=== PATIENT | female | born 1985 | race Caucasian/White ===

== ENCOUNTER 2019-09-04 20:16 | Emergency (ER) | payer MEDICAID, SELFPAY ==
[~2019-09-04] VITALS: Ht 160 cm; Wt 72.6 kg
[2019-09-04 20:17] VITALS: Ht 160 cm; Wt 72.6 kg
[2019-09-04 22:39] VITALS: BP 111/69
== END 2019-09-04 22:37 | disposition home or self-care (01) ==
LOC: ED 20:16
DX: U07.1 COVID-19 (principal); J06.9 Acute upper respiratory infection, unspecified
CPT/HCPCS: Q0092; U0003-CS

== ENCOUNTER 2019-09-11 19:55 | Emergency (ER) | payer MEDICAID, SELFPAY ==
[~2019-09-11] VITALS: Ht 157.5 cm; Wt 72.6 kg
[2019-09-11 20:46] VITALS: Ht 157.5 cm; Wt 72.6 kg
[2019-09-11 22:37] VITALS: BP 102/68
== END 2019-09-11 22:37 | disposition home or self-care (01) ==
LOC: ED 19:55
DX: U07.1 COVID-19 (principal)